=== PATIENT | female | born 1950 | race Caucasian/White ===

== ENCOUNTER 2019-05-24 16:30 | Emergency (ER) | payer MEDICARE ==
[2019-05-24 16:47] VITALS: BP 101/60
--- NOTE | 2019-05-24 17:48 | XRAY Report ---
Reason: fall and pain to wrist Procedure Date: 05/24/2019 Accession Number: [id number] / [id number] Procedure: XR - Wrist 4 View LT CPT Code: FULL RESULT: EXAM: LEFT WRIST RADIOGRAPHY EXAM DATE: 05/24/2019 05:35 PM. CLINICAL HISTORY: Fall and pain to wrist. COMPARISON: None. TECHNIQUE: 4 views. FINDINGS: Bones: Comminuted impacted distal left radius fracture with intra-articular extent. There is mild dorsal angulation measuring between 5-10 degrees. Mild dorsal displacement of the distal left radius fracture fragment as well as lateral displacement. Joints: Degenerative changes of the left wrist. Left ulnar negative variance. No dislocation. Soft Tissues: Soft tissue edema. IMPRESSION: 1. Impacted comminuted distal left radius fracture. RADIA
[2019-05-24] MEDS ORDERED: HYDROcod/ACET 5/325 Prepack 4 PO STA (18:00)
[2019-05-24] MEDS ORDERED: HYDROcod/ACETAM 5/325 MG TABLET PO STA (18:00)
--- NOTE | 2019-05-24 18:00 | ED Physician Documentation ---
PD HPI UPPER EXT INJURY - Stated complaint Stated Complaint: LT WRIST PX - Chief complaint Chief Complaint: Ext Problem - History obtained from History obtained from: Patient - History of Present Illness Location: Left (Trip and fall onto an outstretched left wrist with moderate left wrist pain. No other injuries. She is visiting from [place].) Review of Systems Constitutional: reports: Reviewed and negative Throat: reports: Reviewed and negative Cardiac: reports: Reviewed and negative PD PAST MEDICAL HISTORY - Present Medications Home Medications: Ambulatory Orders Medication Instructions Recorded Confirmed Hydrocodone/Acetaminophen 1 - 2 each PO Q6H PRN #14 tablet 05/24/19 [Hydrocodon-Acetaminophen 5-325] - Allergies Allergies/Adverse Reactions: Allergies Allergy/AdvReac Type Severity Reaction Status Date / Time No Known Drug Allergies Allergy Verified 05/24/19 16:42 PD ED PE NORMAL - Vitals Vital signs reviewed: Yes - General General: Alert and oriented X 3, No acute distress - Neck Neck: Supple, no meningeal sign, No bony TTP - Extremities Extremities: Other (Tender and swollen to the left distal radius with limited range of motion due to pain, no hand or elbow tenderness. NVI in the hand.) - Neuro Neuro: Alert and oriented X 3, Normal speech Results - Vitals Vitals: Vital Signs - 24 hr 05/24/19 16:38 Temperature 36.4 C L Heart Rate 68 Respiratory 18 Rate Blood Pressure 101/60 O2 Saturation 97 Oxygen O2 Source Room air - Rads (name of study) L wrist 4v Radiology: EMP read contemporaneously (Comminuted and intra-articular left distal radius fracture) Procedures - Splint (location) L wrist Splint applied by: Tech Type of splint: Long arm, Sugar tong Other: Patient tolerated well, No complications, Neurovascular intact, Sling provided Departure - Departure Disposition: 01 Home, Self Care Clinical Impression: Fracture of left distal radius Qualifiers: Encounter type: initial encounter Fracture type: closed Fracture morphology: Colles' Qualified Code(s): S52.532A - Colles' fracture of left radius, initial encounter for closed fracture Condition: Good Record reviewed to determine appropriate education?: Yes Health Concerns: wrist frx Plan of Treatment: splint, f/u ortho on return home Care Goals: splint f/u ortho on return home Assessment: as above Instructions: ED Fx Forearm Radius Ulna Redu Requ Prescriptions: Hydrocodone/Acetaminophen [Hydrocodon-Acetaminophen 5-325] 1 - 2 each PO Q6H PRN #14 tablet PRN Reason: pain Comments: Follow-up with an orthopedic surgeon on return home within a week or 2. Return if worse. Keep the arm splinted, do not remove it. Do not get it wet. Do not drink or drive while taking narcotic pain medication. Note that many narcotic pain relievers also contain Tylenol/acetaminophen. Please ensure that your total dose of acetaminophen from all sources does not exceed 3 g (3000 mg) per day. You may get constipated while on this medication. Take a stool softener such as Colace twice a day while you are on it. Also add an [id number]-[id number] laxative such as senna or MiraLAX on any day that you do not have a bowel movement. If you received a narcotic pain medication or sedative while in the emergency department, do not drive for the next 24 hours.
== END 2019-05-24 19:05 | disposition home or self-care (01) ==
LOC: ED 16:30
DX: S52.532A Colles' fracture of left radius, initial encounter for closed fracture (principal); W01.0XXA Fall on same level from slipping, tripping and stumbling without subsequent striking against object, initial encounter
CPT/HCPCS: 29105; 73110; 99283; A9270